=== PATIENT | male | born 2000 | race Caucasian/White ===

== ENCOUNTER 2021-07-02 18:30 | Emergency (ER) | payer BC, SELFPAY ==
[2021-07-02] VITALS (8 sets, daily range): BP systolic 130–144; BP diastolic 78–99; PULSE 61–74; RESP 16–21; TEMP 36.8–37.1; O2SAT 98–99; BMI 33.2; BMI 33.3
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
== END 2021-07-02 23:07 | disposition home or self-care (01) ==
LOC: UTC 18:38 → ER 19:21
PROVIDERS: Emergency Provider Emergency Medicine; PCP Internal Medicine
DX: S52.501A Unspecified fracture of the lower end of right radius, initial encounter for closed fracture (principal); S52.514A Nondisplaced fracture of right radial styloid process, initial encounter for closed fracture; V86.55XA Driver of 3- or 4- wheeled all-terrain vehicle (ATV) injured in nontraffic accident, initial encounter; Z88.0 Allergy status to penicillin
CPT/HCPCS: 25605; 73090; 73100; 73110; 73120; 73200; 96365; 96375; 99285